=== PATIENT | male | born 1970 | race Two or more races ===

== ENCOUNTER 2023-04-23 10:06 | Emergency (ER) | payer OTHER ==
[~2023-04-23] VITALS: Ht 167.6 cm; Wt 100.0 kg
[2023-04-23 10:59] VITALS: BP 133/68; PULSE 56; RESP 16; TEMP 98.3
== END 2023-04-23 12:24 | disposition home or self-care (01) ==
LOC: EMS 10:06
DX: S63.501A Unspecified sprain of right wrist, initial encounter (principal); X58.XXXA Exposure to other specified factors, initial encounter; Y93.89 Activity, other specified; Y92.89 Other specified places as the place of occurrence of the external cause; Y99.8 Other external cause status
CPT/HCPCS: 99284; 73070-TC; 73100-TC; Z7502